=== PATIENT | male | born 1950 | race Caucasian/White ===

== ENCOUNTER 2016-04-28 19:33 | Observation (INO) | payer BC ==
[2016-04-28] MEDS ORDERED: Nitroglycerin TAB 0.4 MG* 0.4 MG TAB SL ONE (20:13)
[2016-04-28] MEDS ORDERED: Lidocaine 2% VISCOUS* 15 ML UDC PO ONE (20:14)
[2016-04-28] MEDS ORDERED: Al Hydrox/Mg Hydrox/Simet LIQ* 30 ML UDC PO ONE (20:14)
[2016-04-28] MEDS: NS 0.9% 1000 ML* 1,000 ML IV SCH (20:34)
--- NOTE | 2016-04-28 20:53 | RAD ---
INDICATION: Chest pain COMPARISON: Chest x-ray August 09, 2012 TECHNIQUE: An AP portable view obtained at 2020 hours is submitted. FINDINGS: Bones/Soft Tissues: There are no acute bony findings. Cardiomediastinal: The cardiomediastinal silhouette is normal. Lungs: There are no infiltrates. Incidental note is made of an azygos fissure. Pleura: There are no pleural effusions. Other: None IMPRESSION: NO ACTIVE DISEASE.
[2016-04-28 20:59] LABS: Hematocrit 46 % (42-52); Hemoglobin 15.4 g/dl (14.0-18.0); Mean Corpuscular HGB Conc 33 g/dl (31-36); Mean Corpuscular Hemoglobin 31 pg (27-31); Mean Corpuscular Volume 93 fL (80-94); Mean Platelet Volume 10 um3 (7.4-10.4); Red Blood Count 4.96 10^6/ul (4.0-5.4); Red Cell Distribution Width 13 % (10.5-15); White Blood Count 9.3 10^3/ul (3.5-10.8)
[2016-04-28 21:16] LABS: ALT 32 U/L (7-52); Alkaline Phosphatase 55 U/L (34-104); BUN/Creatinine Ratio 18.9 (8-20); Blood Urea Nitrogen 21 mg/dL (6-24); C Reactive Protein 1.64 mg/L (< 5.00); CO2 Carbon Dioxide 26 mmol/L (22-32); Calcium 9.1 mg/dL (8.6-10.3); Chloride 103 mmol/L (101-111); Creatine Kinase 90 U/L (10-223); EGFR Non-African American 66.9 (>60); Globulin 2.9 g/dL (2-4); Glucose 116 mg/dL (70-100); Lipase 18 U/L (11.0-82.0); Sodium 136 mmol/L (133-145); Total Protein 6.9 g/dL (6.4-8.9)
[2016-04-28 21:18] LABS: Troponin I 0.01 ng/mL (<0.04)
[2016-04-28] MEDS ORDERED: Iohexol 350* (CONTRAST) 500 ML MDV IV ONE (21:22)
[2016-04-28 21:35] LABS: TSH (Thyroid Stimulating Horm) 2.89 mcIU/mL (0.34-5.60)
--- NOTE | 2016-04-28 21:37 | ED ---
Wayne Hill Michael, scribed for Sanjay So MD on 04/28/16 at 2011 . HPI Chest Pain - HPI Summary HPI Summary: 65 y/o male comes to the ED presenting with constant lower left CP that started at 1600 this afternoon. The pt describes the CP as tightness and pressure, and he states that at the CP's worst it was rated a 6 out of 10. Currently the pt rates the pain at 4 out of 10. The CP does not radiate to the to LUE, and it is aggravated with standing up and taking deep breathes. He also c/o diaphoresis. The pt denies SOB, nausea, and bilateral LE pain. The PMHx is significant for HTN and CAD. - History of Current Complaint Chief Complaint: EDChestPainROMI Time Seen by Provider: 04/28/16 19:53 Hx Obtained From: Patient, Medical Records Onset/Duration: Started Hours Ago, Still Present Time of Onset: 16:00 Timing: Constant Initial Severity: Moderate Current Severity: Mild Pain Intensity: 4 Pain Scale Used: 0-10 Numeric Chest Pain Location: Discrete at: - left lower CP Chest Pain Radiates: No Character: Pressure/Squeezing, Tightness Aggravating Factor(s): Movement - standing up Alleviating Factor(s): Nothing Associated Signs and Symptoms: Positive: Negative - bilateral LE pain, Chest Pain, Diaphoresis. Negative: Shortness of Breath, Nausea - Allergy/Home Medications Allergies/Adverse Reactions: Allergies Allergy/AdvReac Type Severity Reaction Status Date / Time No Known Allergies Allergy Verified 02/17/15 07:38 PMH/Surg Hx/FS Hx/Imm Hx Endocrine/Hematology History: Denies: Hx Anticoagulant Therapy, Hx Diabetes, Hx Sickle Cell Disease, Hx Thyroid Disease Cardiovascular History: Reports: Hx Coronary Artery Disease - CHOLESTEROL CONTROL WITH MEDICATION, Hx Hypertension - WELL CONTROLLED WITH MEDICATION Denies: Hx Pacemaker/ICD, Other Cardiovascular Problems/Disorders Respiratory History: Reports: Hx Sleep Apnea Denies: Hx Asthma, Hx Chronic Obstructive Pulmonary Disease (COPD), Other Respiratory Problems/Disorders GI History: Denies: Other GI Disorders History: Reports: Hx Kidney Stones - CURRENT, Hx Renal Disease Musculoskeletal History: Reports: Hx Arthritis - PSORIATIC ARTHRITIS Sensory History: Reports: Hx Contacts or Glasses - GLASSES Denies: Hx Hearing Aid Opthamlomology History: Reports: Hx Contacts or Glasses - GLASSES Neurological History: Denies: Hx Dementia, Hx Seizures, Other Neuro Impairments/Disorders Psychiatric History: Reports: Hx Anxiety, Hx Depression Denies: Hx Substance Abuse - Surgical History Surgery Procedure, Year, and Place: CYSTO, LITHO 12/15 [facility]. TONSILLECTOMY, AGE 12. MULTIPLE CYSTO, STENT FOR KIDNEY STONES [facility] Hx Anesthesia Reactions: No Infectious Disease History: No Infectious Disease History: Denies: Hx Hepatitis, Hx Human Immunodeficiency Virus (HIV), Traveled Outside the [place] in Last 30 Days - Family History Known Family History: Positive: None Family History: No family malignant hyperthermia and family anesthesia reaction - Social History Occupation: Employed Full-time Lives: With Family Alcohol Use: Daily Alcohol Amount: 1 BEER A DAY Substance Use Type: Reports: None Smoking Status (MU): Never Smoked Tobacco Have You Smoked in the Last Year: No Review of Systems Positive: Skin Diaphoresis. Negative: Fever Positive: Chest Pain Negative: Shortness Of Breath Negative: Nausea All Other Systems Reviewed And Are Negative: Yes Physical Exam Triage Information Reviewed: Yes Vital Signs On Initial Exam: Initial Vitals Temp Pulse Resp BP Pulse Ox 98.9 F 91 16 150/83 98 04/28/16 19:35 04/28/16 19:35 04/28/16 19:35 04/28/16 19:35 04/28/16 19:35 Vital Signs Reviewed: Yes Appearance: Positive: Well-Appearing, No Pain Distress Skin: Positive: Warm, Skin Color Reflects Adequate Perfusion, Dry Head/Face: Positive: Normal Head/Face Inspection Eyes: Positive: EOMI, GREGG ENT: Positive: Normal ENT inspection Neck: Positive: Supple, Nontender Respiratory/Lung Sounds: Positive: Clear to Auscultation, Breath Sounds Present Cardiovascular: Positive: RRR Abdomen Description: Positive: Nontender, Soft Bowel Sounds: Positive: Present Musculoskeletal: Positive: Normal, Strength/ROM Intact Neurological: Positive: Normal, Sensory/Motor Intact, Alert, Oriented to Person Place, Time Psychiatric: Positive: Affect/Mood Appropriate Diagnostics - Vital Signs Vital Signs Temp Pulse Resp BP Pulse Ox 04/28/16 19:35 98.9 F 91 16 150/83 98 - Laboratory Lab Results: Lab Results 04/28/16 04/28/16 04/28/16 Range/Units 20:45 20:45 20:45 WBC 9.3 (3.5-10.8) 10^3/ul RBC 4.96 (4.0-5.4) 10^6/ul Hgb 15.4 (14.0-18.0) g/dl Hct 46 (42-52) % MCV 93 (80-94) fL MCH 31 (27-31) pg MCHC 33 (31-36) g/dl RDW 13 (10.5-15) % Plt Count 221 (150-450) 10^3/ul MPV 10 (7.4-10.4) um3 Neut % (Auto) 65.0 (38-83) % Lymph % (Auto) 20.8 L (25-47) % [place] % (Auto) 11.3 H (1-9) % Eos % (Auto) 1.8 (0-6) % Baso % (Auto) 1.1 (0-2) % Absolute Neuts (auto) 6.1 (1.5-7.7) 10^3/ul Absolute Lymphs (auto) 1.9 (1.0-4.8) 10^3/ul Absolute Monos (auto) 1.1 H (0-0.8) 10^3/ul Absolute Eos (auto) 0.2 (0-0.6) 10^3/ul Absolute Basos (auto) 0.1 (0-0.2) 10^3/ul Absolute Nucleated RBC 0.01 10^3/ul Nucleated RBC % 0.1 INR (Anticoag Therapy) 0.92 (0.89-1.11) APTT 26.7 (26.0-36.3) seconds D-Dimer, Quantitative 396 H (Less Than 230) ng/mL Sodium 136 (133-145) mmol/L Potassium TNP Chloride 103 (101-111) mmol/L Carbon Dioxide 26 (22-32) mmol/L Anion Gap TNP BUN 21 (6-24) mg/dL Creatinine 1.11 (0.67-1.17) mg/dL Est GFR ( Amer) 86.0 (>60) Est GFR (Non-Af Amer) 66.9 (>60) BUN/Creatinine Ratio 18.9 (8-20) Glucose 116 H (70-100) mg/dL Lactic Acid (0.5-2.0) mmol/L Calcium 9.1 (8.6-10.3) mg/dL Magnesium TNP Total Bilirubin 0.50 (0.2-1.0) mg/dL AST TNP ALT 32 (7-52) U/L Alkaline Phosphatase 55 (34-104) U/L Total Creatine Kinase 90 (10-223) U/L CK-MB (CK-2) 2.3 (0.6-6.3) ng/mL Troponin I 0.01 (<0.04) ng/mL C-Reactive Protein 1.64 (< 5.00) mg/L B-Natriuretic Peptide ( - 100) pg/mL Total Protein 6.9 (6.4-8.9) g/dL Albumin 4.0 (3.2-5.2) g/dL Globulin 2.9 (2-4) g/dL Albumin/Globulin Ratio 1.4 (1-3) Lipase 18 (11.0-82.0) U/L TSH 2.89 (0.34-5.60) mcIU/mL 04/28/16 04/28/16 Range/Units 20:45 20:45 WBC (3.5-10.8) 10^3/ul RBC (4.0-5.4) 10^6/ul Hgb (14.0-18.0) g/dl Hct (42-52) % MCV (80-94) fL MCH (27-31) pg MCHC (31-36) g/dl RDW (10.5-15) % Plt Count (150-450) 10^3/ul MPV (7.4-10.4) um3 Neut % (Auto) (38-83) % Lymph % (Auto) (25-47) % [place] % (Auto) (1-9) % Eos % (Auto) (0-6) % Baso % (Auto) (0-2) % Absolute Neuts (auto) (1.5-7.7) 10^3/ul Absolute Lymphs (auto) (1.0-4.8) 10^3/ul Absolute Monos (auto) (0-0.8) 10^3/ul Absolute Eos (auto) (0-0.6) 10^3/ul Absolute Basos (auto) (0-0.2) 10^3/ul Absolute Nucleated RBC 10^3/ul Nucleated RBC % INR (Anticoag Therapy) (0.89-1.11) APTT (26.0-36.3) seconds D-Dimer, Quantitative (Less Than 230) ng/mL Sodium (133-145) mmol/L Potassium Chloride (101-111) mmol/L Carbon Dioxide (22-32) mmol/L Anion Gap BUN (6-24) mg/dL Creatinine (0.67-1.17) mg/dL Est GFR ( Amer) (>60) Est GFR (Non-Af Amer) (>60) BUN/Creatinine Ratio (8-20) Glucose (70-100) mg/dL Lactic Acid 1.7 (0.5-2.0) mmol/L Calcium (8.6-10.3) mg/dL Magnesium Total Bilirubin (0.2-1.0) mg/dL AST ALT (7-52) U/L Alkaline Phosphatase (34-104) U/L Total Creatine Kinase (10-223) U/L CK-MB (CK-2) (0.6-6.3) ng/mL Troponin I (<0.04) ng/mL C-Reactive Protein (< 5.00) mg/L B-Natriuretic Peptide 16 ( - 100) pg/mL Total Protein (6.4-8.9) g/dL Albumin (3.2-5.2) g/dL Globulin (2-4) g/dL Albumin/Globulin Ratio (1-3) Lipase (11.0-82.0) U/L TSH (0.34-5.60) mcIU/mL Result Diagrams: 04/28/16 20:45 04/28/16 20:45 Lab Statement: Any lab studies that have been ordered have been reviewed, and results considered in the medical decision making process. - Radiology CXR Xray Interpretation: No Acute Changes Radiology Interpretation Completed By: Radiologist - EKG EK EKG Rhythm: Sinus Rhythm - 79 ST Segment: Normal Ectopy: None Chest Pain Course/Dx - Course Course Of Treatment: consulted Dr. Kim at 2024-patient will be admitted to [facility] Assessment/Plan: CTA RESULTS PENDING AT SHIFT CHANGE. ADMIT HOSPITALIST STABLE. - Diagnoses Provider Diagnoses: Chest pain Discharge - Discharge Plan Condition: Stable Disposition: ADMITTED TO [facility] Referrals: Osiel Hicks MD [Primary Care Provider] - The documentation as recorded by the scribeWayne Michael accurately reflects the service I personally performed and the decisions made by me, Sanjay So MD.
[2016-04-28 22:48] LABS: Magnesium 2.2 mg/dL (1.9-2.7)
[2016-04-28] MEDS ORDERED: Aspirin TAB* 325 MG PO ONE (23:06)
--- NOTE | 2016-04-29 00:32 | HP ---
HOSPITAL MEDICINE HISTORY AND PHYSICAL: DATE OF ADMISSION: 04/28/16 PRIMARY CARE PHYSICIAN: Dr. Hicks ATTENDING PHYSICIAN: Job Kim MD* (dictation provided by Marbella Rey NP) CHIEF COMPLAINT: Chest pain. HISTORY OF PRESENT ILLNESS: Mr. Polanco is a 65-year-old male with a past medical history of hypertension and hyperlipidemia, who presents to the hospital today with concerns of chest pain. Mr. Polanco states that he was sitting in home watching TV, doing nothing when he suddenly had the onset of chest discomfort to his left chest wall. The pain did not radiate. He had no nausea, had no sweating. He had no vomiting. He had no shortness of breath. The pain was constant. He assumed it would go quickly, but when it did not relieved after a couple of hours, he decided to come to the emergency room for evaluation. In the emergency room, he continues to have some very mild chest pressure along the left chest wall. It is reproducible with palpation. Other than this, Mr. Polanco states he has been doing well. In the emergency room, Mr. Polanco had a troponin that was 0.01 and he had a chest x-ray which showed no acute cardiothoracic process. He had a D-dimer, which was mildly elevated at 396 and therefore went on for a CT of the chest which showed no acute pulmonary embolism or other abnormality. PAST MEDICAL HISTORY: Hypertension, hyperlipidemia, psoriatic arthritis, psoriasis, history of multiple kidney stones. ALLERGIES: No known drug allergies. FAMILY HISTORY: The patient reports his mother related to COPD and dad from non-Hodgkin lymphoma at 84. SOCIAL HISTORY: No reported tobacco or drug use. The patient drinks one beer per day. He states his is the healthcare proxy. REVIEW OF SYSTEMS: A 14-point review of systems was completed with Mr. Polanco and all those not mentioned above were negative. PHYSICAL EXAMINATION GENERAL: Ms. Polanco is sitting in the bed, in no acute distress. He is calm and cooperative with my examination. VITAL SIGNS: Temperature 98.2, heart rate 74, respiratory rate 21, O2 saturation 94% on room air, blood pressure 127/66. HEART: S1, S2. No murmurs, rubs or gallops and regular LUNGS: Clear to auscultation bilaterally with no accessory muscle use and good aeration. NEUROLOGIC: He is alert and oriented x3. He moves all extremities equally. There is no facial asymmetry or focal weakness. Extraocular movements are intact ABDOMEN: Soft, nontender with bowel sounds positive x4. EXTREMITIES: No cyanosis or edema. SKIN: Intact. DIAGNOSTIC STUDIES/LAB DATA: WBC 9.3, hemoglobin 15.4, hematocrit 46, platelet count 321. INR is 0.92, D-dimer 396. Sodium 136, potassium 3.0, chloride 103, serum bicarbonate 26, BUN 21, creatinine 1.11, glucose 116, lactic acid 1.7, magnesium 2.2. Troponin 0.01. Chest x-ray shows no acute process. Chest thorax CTA has been reported to have no pulmonary embolism via angiography technologist and report from Radiology. EKG shows sinus rhythm with no evidence of ischemia. ASSESSMENT: Mr. Polanco is 65-year-old male with a past medical history of hypertension, hyperlipidemia and obesity who presented to the hospital with chest discomfort. In the emergency room, thus far he has had a negative workup. Our plans are for observation in the hospital for the followin. Chest pain. The patient's first troponin was negative. We will repeat troponins x2. He will have telemetry monitoring continuously. He will go on for a nuclear medicine exercise stress test in the morning. 2. Hypertension. Continue the patient's home medications of amlodipine and lisinopril. 3. Depression. Continue bupropion and sertraline. 4. DVT prophylaxis with SCDs. 5. Code status full code. TIME SPENT: Approximately 60 minutes were spent on the admission of this patient, more than half the time spent with her at the bedside reviewing the events leading up to this hospitalization, performing the physical examination, and reviewing the plan of care. MARBELLA REY NP CC: Dr. Hicks * [id number]/[facility] #: [id number] SHYANN
[2016-04-29] MEDS: NS 0.9% 1000 ML* 1,000 ML IV SCH (01:02)
[2016-04-29] MEDS ORDERED: buPROPion TAB* 75 MG PO SCH (09:00)
[2016-04-29] MEDS ORDERED: INDOMETHACIN 75 MG PO SCH (09:00)
[2016-04-29] MEDS ORDERED: Aspirin EC Low Dose* 81 MG TAB.EC PO SCH (09:00)
[2016-04-29] MEDS ORDERED: Folic Acid TAB* 1 MG PO SCH (09:00)
[2016-04-29] MEDS ORDERED: Sertraline* 50 MG TAB PO SCH (09:00)
[2016-04-29] MEDS ORDERED: amLODIPine TAB* 5 MG PO SCH (09:00)
[2016-04-29] MEDS ORDERED: Hydrochlorothiazide TAB* 25 MG PO SCH (09:00)
[2016-04-29] MEDS ORDERED: Lisinopril TAB* 10 MG PO SCH (09:00)
--- NOTE | 2016-04-29 10:01 | RAD ---
Edited for charges. INDICATION: Chest pain. COMPARISON: There are no prior studies available for comparison. Technique: A single day myocardial perfusion stress study was performed. Initially a resting study was performed. The patient was given an intravenous injection of 10.8 mCi of technetium 99m tetrofosmin and and the heart was imaged in multiple projections. The patient returned later in the day and under the direction of Dr. Monsalve, the patient was exercised to a peak heart rate of 141 beats per minute which was 90% of the maximum predicted heart rate. Subsequently the patient was given intravenous injection of 25.6 mCi of technetium 99m tetrofosmin and the heart was imaged in multiple projections. Images were reconstructed in the axial, sagittal and coronal planes and in a 3- D format. FINDINGS: There appears to be normal wall motion and myocardial thickening. The left ventricular ejection fraction was calculated to be 72%. Review of the images demonstrates normal distribution of radiopharmaceutical. IMPRESSION: NO EVIDENCE FOR INFARCT OR ISCHEMIA. ASSESSMENT: Low risk. Based on imaging criteria from ACC/AHA 2002 Guideline Update for the Management of Patients With Chronic Stable Angina Table 23. Noninvasive Risk Stratification. MTDD
[2016-04-29 10:19] VITALS: BP 147/76
[2016-04-29] MEDS ORDERED: Atorvastatin* 10 MG TAB PO SCH (17:00)
--- NOTE | 2016-04-30 02:26 | DS ---
DISCHARGE SUMMARY: DATE OF ADMISSION: DATE OF DISCHARGE: 04/29/16 HISTORY OF PRESENT ILLNESS: This 65-year-old man presenting with chest pain. He was at home relaxing, sitting down. He was under no stress. He had not done any unusual activity. He developed left-sided chest pain, somewhat pleuritic and radiated around to his back a little bit. There was no further radiation. There were no associated symptoms. The pain persisted and in fact was present at the time of discharge. In the emergency room, his D-dimer was noted to be 396. CTA of the chest was done. Verbal report from the radiologist is that this was normal. There was no evidence of pulmonary embolism. The patient was admitted to the telemetry unit. He had three troponins, all of which were normal. EKG showed no significant abnormalities. He underwent a nuclear medicine stress test, which showed no evidence of infarct or ischemia. Ejection fraction was calculated to be 72%. My clinical impression is that the patient has chest wall syndrome. He was a little tender on his chest wall. He had a little spot of psoriasis in the left scapular area. The chest wall pain could be related to psoriatic arthritis to some musculo-skeletal strain or other type of musculoskeletal inflammation. Remote possibility is that he has radicular pain from vertebral column disease. In any event, he did not require any extra medications for this and seemed to be quite comfortable moving around. My expectation is that the pain will gradually subside in the next few days or weeks at most. If it persists, further workup could be done as an outpatient. FINAL DIAGNOSES: 1. Chest wall pain. 2. Psoriatic arthritis. 3. Hypertension. 4. Bilateral renal calculi. DISCHARGE MEDICATIONS: 1. Hydrochlorothiazide 12.5 mg daily. 2. Lisinopril 10 mg daily. 3. Amlodipine 10 mg daily. 4. Methotrexate 5 mg every Friday. 5. Indomethacin 75 mg every evening. 6. Hydrocortisone 2.5% cream p.r.n. 7. Folic acid 1 mg daily. 8. Bupropion 75 mg daily. 9. Simvastatin 20 mg daily. 10. Sertraline 50 mg daily. CC: Dr. Hicks* [id number]/[facility] #: [id number] MTDD
--- NOTE | 2016-04-30 09:18 | RAD ---
INDICATION: Chest pain. Short of breath. Evaluate for pulmonary embolus. COMPARISON: CT abdomen and pelvis April 23, 2012 TECHNIQUE: Axial source images were obtained from the thoracic inlet to the hemidiaphragms following administration of [address] angiographic technique was utilized. Coronal and sagittal reconstructed images were acquired. CHEST FINDINGS: Neck/thyroid: The visualized neck to include the thyroid appear normal. Chest wall: There are no acute abnormalities of the bony thorax or chest wall. There is no supraclavicular, infraclavicular, or axillary lymphadenopathy. Lungs : There are no pulmonary parenchymal masses or infiltrates. The pulmonary interstitium appears normal. There are no endobronchial lesions. Still note is made of an azygos lobe Cardiomediastinal structures: There is no CT evidence of acute pulmonary embolic disease. The heart is normal in size. There is no pericardial effusion. There is no evidence of aortic aneurysm or dissection. There is no mediastinal or hilar adenopathy. The esophagus appears normal. Pleura : There are no pleural-based masses or effusions. Other: There is eventration right hemidiaphragm, unchanged. There is hepatic steatosis. The GE junction appears patulous IMPRESSION: NO CT EVIDENCE OF ACUTE PULMONARY EMBOLIC DISEASE.
== END 2016-04-29 11:38 | disposition home or self-care (01) ==
LOC: ED 19:33 → MEDTELE 23:15
PROVIDERS: ADMIT Hospitalist; ATTEND Internal Medicine
DX: R07.89 Other chest pain (principal); L40.50 Arthropathic psoriasis, unspecified; I10 Essential (primary) hypertension; N20.0 Calculus of kidney; I25.10 Atherosclerotic heart disease of native coronary artery without angina pectoris
CPT/HCPCS: 36415; 71010; 71275; 78452; 80053; 80061; 82550; 82553; 83605; 83690; 83735; 83880; 84443; 84484; 85025; 85379; 85610; 85730; 86140; 93005; 93017; 99284; A9270-GY; A9502; G0378; Q9967

== ENCOUNTER 2016-10-14 09:51 | Day surgery (SDC) | payer BC ==
--- NOTE | 2016-10-10 13:07 | HP ---
CC: Dr. Osiel Hicks; MELY Salomon * ADMITTING HISTORY AND PHYSICAL: DATE OF ADMISSION: 10/14/16 ADMITTING DIAGNOSES: 1. Left ureteral calculi. 2. Bilaterally renal calculi. PLANNED PROCEDURE: Shockwave lithotripsy left ureteral calculi and left stent insertion. SURGEON: Dr. Carrington. HISTORY OF PRESENT ILLNESS: Neeraj Polanco is a 66-year-old gentleman with a history of bilateral renal calculi. He was recently evaluated and was noted to have what appears to be 2 calculi together aggregating 1.2 cm in the proximal left ureter with mild caliectasis. He was given an option of trying conservative management to see if he could pass this but because of the size and the proximal location of the calculi he has opted for and is now being brought in for left stent insertion and lithotripsy. PAST MEDICAL HISTORY: Significant for: 1. Bilateral recurrent renal calculi. 2. Psoriatic arthritis. 3. Hypertension. MEDICATIONS ON ADMISSION: 1. Cytra-K solution 10 mL twice a day. 2. Lisinopril 20 mg daily. 3. Hydrochlorothiazide 25 mg daily. 4. Methotrexate 10 mg weekly. 5. Wellbutrin 150 mg a day. 6. Amlodipine 10 mg a day. 7. Indomethacin. ALLERGIES: No known drug allergies. REVIEW OF SYSTEMS: He denies any chest pain or shortness of breath. There is no history of diabetes mellitus or any other major systemic illness. PHYSICAL EXAMINATION GENERAL: Reveals a pleasant middle-aged, overweight gentleman. VITAL SIGNS: Blood pressure is 142/84; pulse 80 per minute, temperature 97.7, oxygen saturation 97% on room air. LUNGS: Clear bilaterally. CARDIOVASCULAR: Regular rate and rhythm. S1, S2. ABDOMEN: Soft with mild left flank tenderness. IMPRESSION: I reviewed the sonogram and the x-ray in detail with Mr. Polanco and had a detailed discussion of treatment options including continued conservative management, left ureteroscopy with laser lithotripsy, and left stent insertion with shockwave lithotripsy. I discussed the procedure in detail with him and the plan is for left stent insertion and shockwave lithotripsy of left ureteral calculi. [id number]/[facility] #: [id number] MTDD
[~2016-10-14 09:51] MED LIST: Buffered Lidocaine 0.9% SYRIN* 5 ML/SYR SYRINGE INTRADERM ONE; Buffered Lidocaine 0.9% SYRIN* 5 ML/SYR SYRINGE ONE; Famotidine IV* 10 MG/ML 2 ML (20 mg) IV ONE; Famotidine IV* 10 MG/ML 2 ML (20 mg) ONE; cefTRIAXone(*) 2 GM ADDV.VIAL IVPB ONE
[2016-10-14] MEDS ORDERED: Dexamethasone IV* 4 MG/ML 1 ML (4 MG) ONE (11:07)
[2016-10-14] MEDS ORDERED: KETAMINE HCL* 50 MG/ML 10 ML VIAL ONE (11:07)
[2016-10-14] MEDS ORDERED: Ondansetron INJ* 2 MG/ML VIAL ONE (11:07)
[2016-10-14] MEDS ORDERED: Lidocaine 2% PF * 5 ML VIAL ONE (11:07)
[2016-10-14] MEDS ORDERED: Ketorolac INJ* 30 MG/ML 1 ML VIAL ONE (11:07)
[2016-10-14] MEDS ORDERED: Propofol* 10 MG/ML 20 ML BTL IV PUSH ONE ×2 (11:07→12:18)
[2016-10-14] MEDS ORDERED: fentaNYL* 50 MCG/ML 2 ML VIAL (100 MCG VIAL) ONE (11:07)
[2016-10-14] MEDS ORDERED: Midazolam* 1 MG/ML 5 ML VIAL (5 MG) ONE (11:08)
--- NOTE | 2016-10-14 11:20 | RAD ---
INDICATION: Bilateral nephrolithiasis COMPARISON: October 10, 2016 TECHNIQUE: A single view of the abdomen is submitted. FINDINGS: Bones: There are no acute bony findings. Soft tissues: The soft tissues appear normal. The psoas margins are sharp. Bowel gas pattern: Normal Calcifications: There is bilateral nephrolithiasis. There is no significant radiographic change. Other: None IMPRESSION: BILATERAL NEPHROLITHIASIS, UNCHANGED.
[2016-10-14] MEDS ORDERED: oxyCODONE/Acetamin 5/325 MG* TAB PO PRN (11:27)
[2016-10-14] MEDS ORDERED: DiMENhydriNATE IV* 50 MG/ML VIAL IV PUSH PRN (11:27)
[2016-10-14] MEDS ORDERED: fentaNYL* 50 MCG/ML 2 ML VIAL (100 MCG VIAL) IV PRN (11:27)
[2016-10-14] MEDS ORDERED: Ondansetron INJ* 2 MG/ML VIAL IV PRN (11:27)
[2016-10-14] MEDS ORDERED: Iohexol 180 (CONTRAST) 10 ML SDV IV ONE ×2 (11:31→11:34)
[2016-10-14] MEDS ORDERED: Midazolam* 1 MG/ML 2 ML VIAL (2 MG) ONE (11:52)
[2016-10-14] MEDS ORDERED: Furosemide IV* 10 MG/ML 2 ML VIAL (20 MG) ONE (12:07)
[2016-10-14] MEDS ORDERED: Tamsulosin CAP* 0.4 MG ONE (13:31)
[2016-10-14 14:18] VITALS: BP 140/75
--- NOTE | 2016-10-14 15:27 | RAD ---
INDICATION: Left ureteral stent placement. Left-sided urolithiasis. COMPARISON: October 14, 2016 TECHNIQUE: A single view of the abdomen is submitted. FINDINGS: Bones: There are no acute bony findings. Soft tissues: The soft tissues appear normal. The psoas margins are sharp. Bowel gas pattern: Normal Calcifications: There is been fragmentation of the dominant left-sided calcification. There are multiple small calcific fragments at the level of the inferior pole left kidney and proximal ureter. Other: Interval left ureteral stent placement IMPRESSION: INTERVAL LEFT RENAL FRAGMENTATION POST LITHOTRIPSY AND INTERVAL LEFT URETERAL STENT PLACEMENT
--- NOTE | 2016-10-14 22:33 | OP ---
CC: Osiel Hicks MD * DATE OF OPERATION: 10/14/16 - [facility] DATE OF : 54 SURGEON: Ramon Carrington MD. ANESTHESIOLOGIST: Dr. Saucedo. ANESTHESIA: Spinal. PRE-OP DIAGNOSES: 1. Left ureteral calculi. 2. Left hydronephrosis. POST-OP DIAGNOSES: 1. Left ureteral calculi. 2. Left hydronephrosis. SURGICAL PROCEDURE: 1. Shockwave lithotripsy, left ureteral calculi. 2. Cystoscopy, left retrograde and left stent insertion. COMPLICATIONS: None. POSTOPERATIVE CONDITION: Stable. STENT USED: A 6-Japanese stent, left ureter. INDICATIONS: Neeraj Polanco is a 66-year-old gentleman with a history of bilateral renal and ureteral calculi. He was recently evaluated and noted to have two calculi aggregating 1.2 cm in the left proximal ureter. DESCRIPTION OF PROCEDURE: After induction of spinal anesthesia, the patient was placed on the lithotripsy table in supine position. The 2 calculi in the proximal left ureter were localized using fluoroscopy. Shockwave lithotripsy was commenced at a rate of 90 shocks per minute. Good fragmentation was observed during the procedure and a total of 2200 shocks were administered. Next, the patient was placed in dorsal lithotomy position. Cystoscopy was performed. The urethra was normal. There was mild enlargement of the prostate and a mildly trabeculated bladder. Left retrograde pyelogram revealed left hydronephrosis and a 6-Japanese stent was introduced and positioned under fluoroscopy with good proximal and distal positioning obtained. The patient tolerated the procedure satisfactorily and was transferred back to the recovery area in stable condition. [id number]/[facility] #: [id number] MTDD
== END 2016-10-14 14:23 | disposition home or self-care (01) ==
LOC: OR 09:51
PROVIDERS: ATTEND Urology
DX: N13.2 Hydronephrosis with renal and ureteral calculous obstruction (principal); I10 Essential (primary) hypertension; G47.33 Obstructive sleep apnea (adult) (pediatric); L40.50 Arthropathic psoriasis, unspecified
CPT/HCPCS: 74000; C1876; J0696; J1100; J1580; J1885; J1940; J2250; J2405; J2704; J3010

== ENCOUNTER 2016-10-21 06:44 | Day surgery (SDC) | payer BC ==
[~2016-10-21 06:44] MED LIST changes: +Acetaminophen TAB* 325 MG ONE; +Acetaminophen TAB* 325 MG PO ONE; +Ondansetron INJ* 2 MG/ML VIAL IV ONE; +Ondansetron INJ* 2 MG/ML VIAL ONE
[2016-10-21] MEDS ORDERED: Lidocaine 2% PF * 5 ML VIAL ONE (06:59)
[2016-10-21] MEDS ORDERED: Propofol* 10 MG/ML 20 ML BTL IV PUSH ONE (06:59)
[2016-10-21] MEDS ORDERED: Ondansetron INJ* 2 MG/ML VIAL ONE (06:59)
[2016-10-21] MEDS ORDERED: Furosemide IV* 10 MG/ML 2 ML VIAL (20 MG) ONE ×2 (06:59→07:00)
[2016-10-21] MEDS ORDERED: Dexamethasone IV* 4 MG/ML 1 ML (4 MG) ONE (06:59)
[2016-10-21] MEDS ORDERED: Midazolam* 1 MG/ML 5 ML VIAL (5 MG) ONE (07:02)
[2016-10-21] MEDS ORDERED: KETAMINE HCL* 50 MG/ML 10 ML VIAL ONE (07:02)
[2016-10-21] MEDS ORDERED: fentaNYL* 50 MCG/ML 2 ML VIAL (100 MCG VIAL) ONE (07:02)
[2016-10-21] MEDS ORDERED: Phenylephrine IV* 40 MCG/ML 10 ML SYRINGE ONE (07:03)
[2016-10-21] MEDS ORDERED: Lidocaine 2% JELLY* 20 ML (for OR use) ONE (07:59)
[2016-10-21] MEDS ORDERED: fentaNYL* 50 MCG/ML 2 ML VIAL (100 MCG VIAL) IV PRN (08:52)
[2016-10-21] MEDS ORDERED: DiMENhydriNATE IV* 50 MG/ML VIAL IV PUSH PRN (08:52)
[2016-10-21 08:53] VITALS: BP 157/92
--- NOTE | 2016-10-21 15:22 | OP ---
DATE OF OPERATION: 10/21/16 - [facility] DATE OF : 54 SURGEON: Dr. Carrington. ANESTHESIOLOGIST: Dr. Andres. ANESTHESIA: Local plus IV sedation. PRE-OP DIAGNOSIS: Left ureteral calculi. POST-OP DIAGNOSIS: Left ureteral calculi. OPERATIVE PROCEDURE: Cystoscopy and left stent removal. COMPLICATIONS: None. POSTOPERATIVE CONDITION: Stable. INDICATIONS: Neeraj Polanco is a 66-year-old gentleman with a history of recurrent renal and ureteral calculi. He had undergone left stent insertion and lithotripsy for left ureteral calculi. He would like to have this stent removal done with intravenous sedation, and is now being brought in for the same. DESCRIPTION OF PROCEDURE: After induction of intravenous sedation, 2% Xylocaine gel was instilled per urethra. Cystoscopy was performed. The urethra was normal. The prostate was mildly enlarged. The bladder was examined and appeared unremarkable. The stent was seen exiting from the left orifice and was grasped and removed intact without difficulty. The bladder was emptied. The patient tolerated the procedure satisfactorily and was transferred back to the recovery area in stable condition. [id number]/[facility] #: [id number] MTDD
== END 2016-10-21 09:59 | disposition home or self-care (01) ==
LOC: OR 06:44
PROVIDERS: ATTEND Urology
DX: N20.1 Calculus of ureter (principal); L40.50 Arthropathic psoriasis, unspecified; I10 Essential (primary) hypertension; G47.33 Obstructive sleep apnea (adult) (pediatric); F41.8 Other specified anxiety disorders
CPT/HCPCS: A9270-GY; J0696; J1100; J1940; J2250; J2405; J2704; J3010

== ENCOUNTER → 2017-02-21 10:06 | Day surgery (SDC) | payer BC ==
[~2017-02-21 10:06] MED LIST changes: -Acetaminophen TAB* 325 MG ONE; -Acetaminophen TAB* 325 MG PO ONE; -Buffered Lidocaine 0.9% SYRIN* 5 ML/SYR SYRINGE ONE; -Famotidine IV* 10 MG/ML 2 ML (20 mg) ONE; -Ondansetron INJ* 2 MG/ML VIAL IV ONE; -Ondansetron INJ* 2 MG/ML VIAL ONE; -cefTRIAXone(*) 2 GM ADDV.VIAL IVPB ONE
--- NOTE | 2017-02-21 11:21 | HP ---
CC: Dr. Osiel Hicks; MELY Salomon * ADMITTING HISTORY AND PHYSICAL: DATE OF ADMISSION: 02/21/17 ADMITTING DIAGNOSES: 1. Bilateral ureteral calculi. 2. Bilateral renal calculi. PLANNED PROCEDURE: Bilateral ureteroscopy, possible laser, stent insertion. SURGEON: Dr. Carrington. HISTORY OF PRESENT ILLNESS: Neeraj Mabry is a 66-year-old gentleman with a history of recurrent multiple bilateral renal and ureteral calculi. He was recently evaluated for bilateral flank pain and was noted to have approximately a 6- mm calculus in the proximal right ureter and a 5- to 6-mm calculus in the distal left ureter. In addition, he has multiple bilateral renal calculi. PAST MEDICAL HISTORY: Significant for: 1. Recurrent bilateral renal calculi. 2. Hypertension. 3. Psoriatic arthritis. MEDICATIONS: 1. Amlodipine 10 mg daily. 2. Lisinopril 20 mg daily. 3. Cytra-K solution 10 mL twice a day. 4. Hydrochlorothiazide 25 mg a day. 5. Methotrexate 10 mg daily. 6. Wellbutrin 150 mg daily. 7. Indomethacin p.r.n. ALLERGIES: No known drug allergies. REVIEW OF SYSTEMS: There is no history of diabetes and he denies any chest pain , shortness of breath, or any GI symptoms. PHYSICAL EXAMINATION GENERAL: Reveals a significantly uncomfortable-appearing middle-aged gentleman. VITAL SIGNS: Blood pressure is 158/100, pulse 114 per minute and regular, temperature 98, oxygen saturation 97% on room air. LUNGS: Clear bilaterally. CARDIOVASCULAR: Regular rate and rhythm. S1, S2. ABDOMEN: Soft with bilateral flank tenderness. IMPRESSION: A 66-year-old gentleman with bilateral ureteral and bilateral renal calculi. PLAN: Planned procedure is bilateral ureteroscopy, possible laser, and stent insertion. [id number]/[facility] #: [id number] [facility]
== END | disposition home or self-care (01) ==
LOC: OR 10:06
PROVIDERS: ATTEND Urology
DX: Z53.9 Procedure and treatment not carried out, unspecified reason (principal)

== ENCOUNTER 2017-03-24 09:16 | Day surgery (SDC) | payer BC ==
--- NOTE | 2017-03-21 15:30 | HP ---
CC: Dr. Hicks; Ayush Ambrose NP * DATE OF ADMISSION: 03/24/2017. AGE: 66-year-old male. ADMITTING DIAGNOSES: 1. Right hydronephrosis. 2. Right ureteral calculus. 3. Bilateral renal calculi. PLANNED PROCEDURE: Right ureteroscopy, possible laser and stent insertion (to be followed in the near future by lithotripsy). SURGEON: Dr. Ramon Carrington. HISTORY OF PRESENT ILLNESS: Neeraj Polanco is a 66-year-old gentleman with a history of renal calculi. He had been evaluated about a month ago and at that time had been noted to have bilateral ureteral calculi. He subsequently passed the calculus in the left ureter, but continued to have episodic right-sided discomfort and follow-up ultrasound revealed persistent right hydronephrosis with an 8 mm calculus in the proximal right ureter. In addition, he has multiple bilateral renal calculi. The plan now is for right ureteroscopy, possible laser and stent insertion, to be followed in the near future by lithotripsy of the renal calculi. PAST MEDICAL HISTORY: Significant for: 1. Hypertension. 2. Psoriatic arthritis. 3. Recurrent multiple bilateral renal calculi. MEDICATIONS ON ADMISSION: 1. Lisinopril 20 mg a day. 2. Cytra-K solution 10 mL b.i.d. 3. Amlodipine 10 mg daily. 4. Methotrexate 10 mg daily. 5. Hydrochlorothiazide 25 mg daily. 6. Wellbutrin 150 mg daily. 7. Indomethacin prn. ALLERGIES: No known drug allergies. REVIEW OF SYSTEMS: He denies any chest pain or shortness of breath. There is no history of diabetes mellitus or any other major systemic illness. PHYSICAL EXAMINATION GENERAL: Pleasant, healthy-appearing, overweight, middle-aged gentleman. VITAL SIGNS: Blood pressure is 132/80, pulse 70 per minute and regular, oxygen saturation 97 percent on room air, temperature 98.2. CARDIOVASCULAR: Regular rate and rhythm, S1, S2. LUNGS: Clear bilaterally. ABDOMEN: Soft with mild right flank tenderness. IMPRESSION: [place]-pgib-vhvm-old gentleman with a partially obstructing calculus in the right ureter which has been there for over a month and additional bilateral renal calculi. PLAN: Planned procedure is right ureteroscopy, possible laser and stent insertion (to be followed in the near future by lithotripsy). [id number]/[facility] #: [id number] SHYANN
[~2017-03-24 09:16] MED LIST changes: +Dexamethasone IV* 4 MG/ML 1 ML (4 MG) IV SLOW PU ONE
[2017-03-24] MEDS ORDERED: Dexamethasone IV* 4 MG/ML 1 ML (4 MG) ONE (09:30)
[2017-03-24] MEDS ORDERED: Famotidine IV* 10 MG/ML 2 ML (20 mg) ONE (09:30)
[2017-03-24] MEDS ORDERED: fentaNYL* 50 MCG/ML 2 ML VIAL (100 MCG VIAL) ONE (10:19)
[2017-03-24] MEDS ORDERED: Propofol* 10 MG/ML 20 ML BTL IV PUSH ONE (10:19)
[2017-03-24] MEDS ORDERED: Midazolam* 1 MG/ML 10 ML VIAL (10 MG) ONE (10:19)
[2017-03-24] MEDS ORDERED: Chloroprocaine 2%* 20 ML VIAL ONE (10:19)
[2017-03-24] MEDS ORDERED: Iohexol 180 (CONTRAST) 10 ML SDV IV ONE (10:51)
[2017-03-24] MEDS ORDERED: Gentamicin ADULT (*) 160 MG in NS 0.9% 100 ML* 100 ML IVPB ONE (11:00)
[2017-03-24] MEDS ORDERED: Naloxone* 0.4 MG/ML 1 ML VIAL IV PRN (11:05)
[2017-03-24] MEDS ORDERED: fentaNYL* 50 MCG/ML 2 ML VIAL (100 MCG VIAL) IV PRN (11:05)
[2017-03-24] MEDS ORDERED: Ondansetron INJ* 2 MG/ML VIAL IV PRN (11:05)
[2017-03-24] MEDS ORDERED: DiMENhydriNATE IV* 50 MG/ML VIAL IV PUSH PRN (11:05)
[2017-03-24] MEDS ORDERED: oxyCODONE/Acetamin 5/325 MG* TAB PO PRN (11:05)
[2017-03-24 13:44] VITALS: BP 124/68
--- NOTE | 2017-03-24 14:29 | RAD ---
INDICATION: Postop right stent placement. COMPARISON: Comparison is made with a prior KUB series from March 21, 2017 and a prior retrograde pyelogram from March 24, 2017. TECHNIQUE: Frontal supine films of the abdomen were obtained. FINDINGS: The small bowel and colon appear nondistended. The patient is status post placement of a right ureteral stent. The catheter demonstrates normal course. There appear to be bilateral renal calculi. There is also a faint calcification adjacent to the proximal portion of the stent catheter suspicious for ureteral calculus. IMPRESSION: STATUS POST RIGHT URETERAL STENT PLACEMENT.
--- NOTE | 2017-03-25 09:20 | RAD ---
INDICATION: Right renal calculus with laser lithotripsy COMPARISON: KUB March 21, 2017 FINDINGS: 7 seconds of fluoroscopy were provided for the urology department. Fluoroscopic spot imaging of the abdomen were obtained for operative control and show placement of a right ureteral stent in expected position . CPT II Codes: 6045F (fluoro time doc)
--- NOTE | 2017-03-25 13:59 | OP ---
CC: Dr. Osiel Hicks; Ayush Ambrose NP * DATE OF OPERATION: 03/24/17 - [facility] DATE OF : 54 SURGEON: Ramon Carrington MD. ANESTHESIOLOGIST: Dr. Doll. ANESTHESIA: Spinal. PRE-OP DIAGNOSES: 1. Right hydronephrosis. 2. Right ureteral calculus. 3. Right renal calculi. POST-OP DIAGNOSES: 1. Right hydronephrosis. 2. Right ureteral calculus. 3. Right renal calculi. OPERATIVE PROCEDURE: 1. Cystoscopy, right retrograde pyelogram, right ureteroscopy, laser lithotripsy of right ureteral calculus. 2. Right pyeloscopy and laser lithotripsy of right renal calculus and right stent insertion. COMPLICATIONS: None. STENT USED: A 6-Micronesian stent to right ureter. INDICATIONS: Neeraj Polanco is a 66-year-old gentleman with history of recurrent renal calculi, who was recently evaluated and noted to have renal and ureteral calculi. OPERATIVE FINDINGS: 1. Calculus right mid to proximal ureter. 2. Right renal calculus. 3. Right hydronephrosis. DESCRIPTION OF PROCEDURE: After induction of spinal anesthesia, the patient was placed in the dorsal lithotomy position. Sequential compression devices were in place and functioning. Initial cystoscopy revealed a normal appearing urethra, a mildly enlarged prostate. The bladder was examined and appeared unremarkable. The guidewire was introduced into the right ureter. Retrograde pyelogram revealed right hydronephrosis. A 6-Micronesian semi-rigid uretero-scope was introduced and advanced under direct vision. Near the junction of the mid to distal right ureter, a 7 to 8 mm calculus was noted to be impacted. There was some mild surrounding edema. Using a 550 micron holmium laser, this was successfully fragmented into multiple fragments and all of the sizeable fragments were retrieved. Next, the uretero-scope was advanced into the renal pelvis and pyeloscopy was performed. The ureteroscope was advanced into an upper to mid pole calyx and a calculus was noted to be adherent to the urothelium. This was carefully engaged and removed using the basket and then broken up with laser fiber into multiple tiny fragments. A 6- Micronesian stent was introduced and positioned under fluoroscopy with good proximal and distal positioning obtained. The bladder was emptied. The patient tolerated the procedure satisfactorily and was transferred back to the recovery area in stable condition. [id number]/[facility] #: [id number] MTDD
== END 2017-03-24 14:11 | disposition home or self-care (01) ==
LOC: OR 09:16
PROVIDERS: ATTEND Urology
DX: N13.2 Hydronephrosis with renal and ureteral calculous obstruction (principal); I10 Essential (primary) hypertension; L40.50 Arthropathic psoriasis, unspecified; G47.33 Obstructive sleep apnea (adult) (pediatric); F41.8 Other specified anxiety disorders
CPT/HCPCS: 74018; 74420; 82365; 88300; C1876; J1100; J1580; J2250; J2400; J2704; J3010

== ENCOUNTER 2017-04-02 09:17 | Day surgery (SDC) | payer BC ==
[~2017-04-02 09:17] MED LIST changes: -Dexamethasone IV* 4 MG/ML 1 ML (4 MG) IV SLOW PU ONE
[2017-04-02] MEDS ORDERED: Famotidine IV* 10 MG/ML 2 ML (20 mg) ONE (09:49)
[2017-04-02] MEDS ORDERED: cefTRIAXone(*) 2 GM ADDV.VIAL IVPB ONE (09:50)
[2017-04-02] MEDS ORDERED: Dexamethasone IV* 4 MG/ML 1 ML (4 MG) ONE (09:50)
[2017-04-02] MEDS ORDERED: oxyCODONE/Acetamin 5/325 MG* TAB PO PRN (10:05)
[2017-04-02] MEDS ORDERED: HYDROmorphone INJ* 1 MG/ML CARPUJECT SYRINGE IV PRN (10:05)
[2017-04-02] MEDS ORDERED: Ondansetron INJ* 2 MG/ML VIAL IV PRN (10:05)
[2017-04-02] MEDS ORDERED: DiMENhydriNATE IV* 50 MG/ML VIAL IV PUSH PRN (10:05)
[2017-04-02] MEDS ORDERED: fentaNYL* 50 MCG/ML 2 ML VIAL (100 MCG VIAL) IV PRN (10:05)
[2017-04-02] MEDS ORDERED: Naloxone* 0.4 MG/ML 1 ML VIAL IV PRN (10:05)
[2017-04-02] MEDS: Dexamethasone IV* 4 MG/ML 1 ML (4 MG) IV SLOW PU ONE (10:09)
--- NOTE | 2017-04-02 10:15 | RAD ---
HISTORY: Shock wave lithotripsy COMPARISONS: March 24, 2017 VIEWS: Frontal views of the abdomen. FINDINGS: BOWEL: There is a nonspecific bowel gas pattern, with nondilated small bowel gas noted. CALCULI: Again noted are calculi overlying the renal parenchymal shadow as bilaterally, the largest on the right measuring up to 0.7 cm in size. This is similar to the previous examination. A right ureteral stent is noted. BONES AND SOFT TISSUES: There is a scoliotic curvature of the spine. Degenerative changes are noted of the spine OTHER FINDINGS: None . IMPRESSION: 1. BILATERALLY NEPHROLITHIASIS. 2. RIGHT URETERAL STENT.
[2017-04-02] MEDS ORDERED: fentaNYL* 50 MCG/ML 2 ML VIAL (100 MCG VIAL) ONE (10:17)
[2017-04-02] MEDS ORDERED: Midazolam* 1 MG/ML 10 ML VIAL (10 MG) ONE (10:17)
[2017-04-02] MEDS ORDERED: Ondansetron INJ* 2 MG/ML VIAL ONE (10:49)
[2017-04-02] MEDS ORDERED: Chloroprocaine 2%* 20 ML VIAL ONE (10:49)
[2017-04-02] MEDS ORDERED: Furosemide IV* 10 MG/ML 2 ML VIAL (20 MG) ONE (11:07)
[2017-04-02] MEDS ORDERED: Iohexol 180 (CONTRAST) 10 ML SDV IV ONE (11:35)
[2017-04-02 12:40] VITALS: BP 146/82
--- NOTE | 2017-04-03 03:12 | OP ---
DATE OF OPERATION: 04/02/17 - [facility] DATE OF : 54 SURGEON: Dr. Carrington. ANESTHESIA: Spinal. ANESTHESIOLOGIST: Dr. Doll. PRE-OP DIAGNOSES: 1. Right renal calculus. 2. History of right hydronephrosis. POST-OP DIAGNOSES: 1. Right renal calculus. 2. History of right hydronephrosis. OPERATIVE PROCEDURES: 1. Shock wave lithotripsy of right renal calculus. 2. Cystoscopy and right stent removal. COMPLICATIONS: None. POSTOPERATIVE CONDITION: Stable. INDICATIONS: Neeraj Polanco is a 66-year-old gentleman who had undergone right ureteroscopy and laser lithotripsy for obstructing right ureteral calculus. At that time, he was noted to have an additional calculus in the right kidney and is now being brought in for treatment of the same along with stent removal. DESCRIPTION OF PROCEDURE: After induction of spinal anesthesia, the patient was placed on lithotripsy table in supine position. The calculus in the lower pole of the right kidney was identified using fluoroscopy and shock wave lithotripsy was commenced at a rate of 90 shocks per minute. After the initial 300 shocks, there was a pause in the lithotripsy for several minutes in an effort to minimize any potential trauma to the kidney. Lithotripsy was then resumed and a total of 1500 shocks were administered. Next, the patient was placed in dorsal lithotomy position. Cystoscopy was performed. The stent was seen exiting from the right orifice and was removed intact without difficulty. The patient tolerated the procedure satisfactorily and was transferred back to the recovery area in stable condition. [id number]/[facility] #: [id number] [facility]
== END 2017-04-02 13:23 | disposition home or self-care (01) ==
LOC: OR 09:17
PROVIDERS: ATTEND Urology
DX: N13.2 Hydronephrosis with renal and ureteral calculous obstruction (principal); I10 Essential (primary) hypertension; G47.33 Obstructive sleep apnea (adult) (pediatric); L40.50 Arthropathic psoriasis, unspecified; F32.9 Major depressive disorder, single episode, unspecified
CPT/HCPCS: 74018; J0696; J1100; J1940; J2250; J2400; J2405; J3010

== ENCOUNTER → 2018-05-25 07:05 | Day surgery (SDC) | payer MEDICARE ==
--- NOTE | 2018-05-21 17:37 | HP ---
CC: Dr. Osiel Hicks; Ayush Ambrose NP * ADMITTING HISTORY AND PHYSICAL: DATE OF ADMISSION: 05/25/18 ADMITTING DIAGNOSES: 1. Right hydronephrosis. 2. Calculus, right ureter. 3. Bilateral renal calculi. PLANNED PROCEDURE: Right ureteroscopy, possible laser, and stent insertion ( possibly to be followed by shockwave lithotripsy). SURGEON: Dr. Carrington. HISTORY OF PRESENT ILLNESS: Neeraj Polanco is a 67-year-old gentleman with a history of recurrent multiple bilateral renal and ureteral calculi. He had recently been evaluated about 3 weeks ago and was noted to have moderate right hydronephrosis with proximal right hydroureter. He has been managed conservatively, but continues to have persistent right hydronephrosis with a possible calculus in the area of the mid right ureter in addition to bilateral renal calculi. He is now being brought in for right ureteroscopy for treatment of the calculus in the right ureter. PAST MEDICAL HISTORY: Significant for: 1. Recurrent bilateral renal calculi. 2. 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 3. Psoriatic arthritis. 4. Hypertension. MEDICATIONS ON ADMISSION: 1. Amlodipine 10 mg daily. 2. Methotrexate 10 mg daily. 3. Hydrochlorothiazide 25 mg daily. 4. Lisinopril 20 mg daily. 5. Cytra-K solution 10 mL twice a day. 6. Wellbutrin 150 mg daily. 7. Indomethacin p.r.n. 8. Multiple eye drops currently being prescribed. ALLERGIES AND INTOLERANCES: No known drug allergies. REVIEW OF SYSTEMS: He is otherwise in excellent health. There is no history of diabetes mellitus or any other major systemic illness. PHYSICAL EXAMINATION GENERAL: Reveals a pleasant middle-aged gentleman. VITAL SIGNS: Blood pressure is 130/80, pulse 88 per minute, oxygen saturation 98% on room air. LUNGS: Clear bilaterally. CARDIOVASCULAR: Regular rate and rhythm. S1, S2. ABDOMEN: Soft with mild right flank tenderness. IMPRESSION: A 67-year-old gentleman with persistent right hydronephrosis for the last several weeks secondary to a calculus in the right mid ureter with additional bilateral renal calculi. PLAN/RECOMMENDATIONS: Planned procedure is right ureteroscopy, possible laser, and stent insertion (possibly to be followed by in the future by lithotripsy if indicated). [id number]/[facility] #: [id number] [facility] [place]
[~2018-05-25 07:05] MED LIST changes: -Buffered Lidocaine 0.9% SYRIN* 5 ML/SYR SYRINGE INTRADERM ONE; +Buffered Lidocaine 1% SYRIN* 1 ML/SYRINGE INTRADERM ONE; +Dexamethasone IV* 4 MG/ML 1 ML (4 MG) IV SLOW PU ONE; +Dexamethasone IV* 4 MG/ML 1 ML (4 MG) ONE; +DiMENhydriNATE IV* 50 MG/ML VIAL IV PUSH PRN; +Famotidine IV* 10 MG/ML 2 ML (20 mg) ONE; +Iohexol 180 (CONTRAST) 10 ML SDV IV ONE; +Lactated Ringers 1000 ML Bag* 1,000 ML IV SCH; +Midazolam* 1 MG/ML 5 ML VIAL (5 MG) ONE; +Naloxone* 0.4 MG/ML 1 ML VIAL IV PRN; +Ondansetron INJ* 2 MG/ML VIAL IV PRN; +Ondansetron INJ* 2 MG/ML VIAL ONE; +Phenylephrine 10 MG/ML VIAL* 1 ML VIAL ONE; +Propofol* 10 MG/ML 20 ML BTL ONE; +cefTRIAXone(*) 2 GM ADDV.VIAL IVPB ONE; +fentaNYL* 50 MCG/ML 2 ML VIAL (100 MCG VIAL) IV PRN; +fentaNYL* 50 MCG/ML 2 ML VIAL (100 MCG VIAL) ONE
[2018-05-25 10:48] VITALS: BP 152/91
--- NOTE | 2018-05-25 13:03 | OP ---
CC: Dr. Hicks; Ramon Carrington MD OPERATIVE SUMMARY: DATE OF OPERATION: 05/25/18 DATE OF : 54 SURGEON: Ramon Carrington MD ANESTHESIOLOGIST: Dr. Hernandez (failed attempt at spinal anesthesia followed by general anesthesia). ANESTHESIA: General. PRE-OP DIAGNOSES: 1. Right hydronephrosis. 2. Calculus, right mid ureter. 3. Bilateral renal calculi. OPERATIVE PROCEDURE: Cystoscopy, right retrograde pyelogram, right ureteroscopy, fragmentation and r emoval of right ureteral calculus, right pyeloscopy, and right stent insertion. POSTOPERATIVE CONDITION: Stable. STENT USED: 6-Ethiopian stent, right ureter. OPERATIVE FINDINGS: Approximately 6 mm calculus impacted in mid right ureter with right hydronephros is. INDICATIONS: Neeraj Polanco is a 67-year-old gentleman with recurrent bilateral renal calculi, who has recently been noted to have persistent right hydronephrosis. DESCRIPTION OF PROCEDURE: After induction of general anesthesia, external genitalia were prepped and draped in the usual sterile fashion. Sequential compression devices were in place and functioning. Initial cystoscopy revealed a normal-appearing urethra, mildly enlarged prostate. The bladder was e xamined and appeared unremarkable. A guidewire was introduced into the right ureter. Retrograde pyel ogram revealed right hydronephrosis and proximal hydroureter. A 6- Ethiopian semi-rigid ureteroscope wa s introduced and advanced into the right ureter under direct vision. In the mid right ureter, an dillon roximately 6-mm calculus was noted to be impacted with surrounding edema and inflammation. This was carefully disengaged from the site of infection. The stone was fairly friable. It was engaged with a 3-prong grasper and broken into 2 fragments. The larger fragment was removed. The smaller fragmen t migrated into the renal pelvis and the ureteroscope was carefully advanced under direct vision into the proximal ureter and then into the renal pelvis. Pyeloscopy was performed. I could see the frag ment in the renal pelvis and this was grabbed. This was also engaged using the 3-prong grasper and r etrieved and sent for analysis. A 6-Ethiopian stent was introduced and positioned under fluoroscopy wit h good proximal and distal positioning obtained. The patient has additional renal calculi, which may require lithotripsy at a later date and may be that could be combined with his stent removal in 2 we eks. The patient tolerated the procedure satisfactorily and was transferred back to the recovery area in s table condition. [id number]/[facility] #: [id number]
== END | disposition home or self-care (01) ==
LOC: OR 07:05
PROVIDERS: ATTEND Urology
DX: N13.2 Hydronephrosis with renal and ureteral calculous obstruction (principal); I10 Essential (primary) hypertension; L40.50 Arthropathic psoriasis, unspecified; G47.33 Obstructive sleep apnea (adult) (pediatric); E78.5 Hyperlipidemia, unspecified; Z68.33 Body mass index [BMI] 33.0-33.9, adult; F41.8 Other specified anxiety disorders
CPT/HCPCS: 74420; 82365; 88300; C1876; J0696; J1100; J2250; J2405; J2704; J3010

== ENCOUNTER → 2018-06-22 08:49 | Day surgery (SDC) | payer MEDICARE ==
[~2018-06-22 08:49] MED LIST changes: -Dexamethasone IV* 4 MG/ML 1 ML (4 MG) IV SLOW PU ONE; -DiMENhydriNATE IV* 50 MG/ML VIAL IV PUSH PRN; +Furosemide IV* 10 MG/ML 2 ML VIAL (20 MG) ONE; -Iohexol 180 (CONTRAST) 10 ML SDV IV ONE; +Lidocaine 2% PF * 5 ML VIAL ONE; -Phenylephrine 10 MG/ML VIAL* 1 ML VIAL ONE; +oxyCODONE/Acetamin 5/325 MG* TAB PO PRN
[2018-06-22 12:51] VITALS: BP 114/60
--- NOTE | 2018-06-22 22:07 | OP ---
CC: Dr. Osiel Hicks * DATE OF OPERATION: 06/22/18 - [facility] DATE OF : 54 SURGEON: Ramon Carrington MD ANESTHESIOLOGIST: Dr. Saucedo. ANESTHESIA: General. PRE-OP DIAGNOSIS: Right renal calculus. POST-OP DIAGNOSIS: Right renal calculus. OPERATIVE PROCEDURES: 1. Shockwave lithotripsy, right renal calculus. 2. Cystoscopy and right stent removal. COMPLICATIONS: None. POSTOPERATIVE CONDITION: Stable. INDICATIONS: Neeraj Polanco is a 67-year-old gentleman with a history of recurrent bilateral renal and ureteral calculi. He had undergone right ureteroscopy and laser lithotripsy and right stent insertion. At that time, he was noted to have an additional calculus in the right kidney and is now being brought in for management of the same. DESCRIPTION OF PROCEDURE: After induction of general anesthesia, the patient was placed on the lithotripsy table in supine position. The calculus in the lower pole of the right kidney was identified using fluoroscopy. It measured approximately 5 to 6 mm. Shockwave lithotripsy was commenced at a rate of 60 shocks per minute. After the initial 300 shocks, there was a brief pause in lithotripsy for several minutes in an effort to minimize any potential trauma to the kidney. Lithotripsy was then resumed and a total of 1000 shocks were delivered. Next, the patient was placed in dorsal lithotomy position and cystoscopy was performed. The stent was seen with the distal coil in the bladder and was removed intact without difficulty. The bladder was emptied. The patient tolerated the procedure satisfactorily and was transferred back to the recovery area in stable condition. [id number]/[facility] #: [id number] MTDD
== END | disposition home or self-care (01) ==
LOC: OR 08:49
PROVIDERS: ATTEND Urology
DX: N20.0 Calculus of kidney (principal); N20.1 Calculus of ureter; N13.30 Unspecified hydronephrosis; L40.50 Arthropathic psoriasis, unspecified
CPT/HCPCS: 74018; J0696; J1100; J1940; J2250; J2405; J2704; J3010

== ENCOUNTER 2019-02-16 07:38 | Day surgery (SDC) | payer MEDICARE ==
[~2019-02-16 07:38] MED LIST changes: +Dexamethasone IV* 4 MG/ML 1 ML (4 MG) IV SLOW PU ONE; -Dexamethasone IV* 4 MG/ML 1 ML (4 MG) ONE; -Famotidine IV* 10 MG/ML 2 ML (20 mg) ONE; -Furosemide IV* 10 MG/ML 2 ML VIAL (20 MG) ONE; -Lidocaine 2% PF * 5 ML VIAL ONE; -Midazolam* 1 MG/ML 5 ML VIAL (5 MG) ONE; -Naloxone* 0.4 MG/ML 1 ML VIAL IV PRN; -Ondansetron INJ* 2 MG/ML VIAL IV PRN; -Ondansetron INJ* 2 MG/ML VIAL ONE; -Propofol* 10 MG/ML 20 ML BTL ONE; -cefTRIAXone(*) 2 GM ADDV.VIAL IVPB ONE; -fentaNYL* 50 MCG/ML 2 ML VIAL (100 MCG VIAL) IV PRN; -fentaNYL* 50 MCG/ML 2 ML VIAL (100 MCG VIAL) ONE; -oxyCODONE/Acetamin 5/325 MG* TAB PO PRN
[2019-02-16] MEDS ORDERED: Dexamethasone IV* 4 MG/ML 1 ML (4 MG) ONE (08:09)
[2019-02-16] MEDS ORDERED: Famotidine IV* 10 MG/ML 2 ML (20 mg) ONE (08:10)
[2019-02-16] MEDS ORDERED: Buffered Lidocaine 1% SYRIN* 1 ML/SYRINGE INTRADERM ONE (08:10)
[2019-02-16] MEDS ORDERED: ceFAZolin 2 GM in NS PREMIX(*) 2 GM/100 ML BAG IVPB ONE (08:10)
[2019-02-16] MEDS ORDERED: Lidocaine 1% w EPI 1:100,000* MDV 20 ML VIAL ONE (09:52)
[2019-02-16] MEDS ORDERED: BSS OPTH.SOL* BTL ONE (09:52)
[2019-02-16] MEDS ORDERED: Artificial Tear OPHTH.OINT* 3.5 GM ONE (09:52)
[2019-02-16] MEDS ORDERED: fentaNYL* 50 MCG/ML 2 ML VIAL (100 MCG VIAL) ONE (09:53)
[2019-02-16] MEDS ORDERED: Midazolam* 1 MG/ML 5 ML VIAL (5 MG) ONE (09:53)
[2019-02-16] MEDS ORDERED: Acetaminophen TAB* 325 MG PO PRN (09:56)
[2019-02-16] MEDS ORDERED: Ondansetron INJ* 2 MG/ML VIAL IV PRN (09:56)
[2019-02-16] MEDS ORDERED: Naloxone* 0.4 MG/ML 1 ML VIAL IV PRN (09:56)
[2019-02-16] MEDS ORDERED: oxyCODONE/Acetamin 5/325 MG* TAB PO PRN (09:56)
[2019-02-16] MEDS ORDERED: fentaNYL* 50 MCG/ML 2 ML VIAL (100 MCG VIAL) IV PRN (09:56)
[2019-02-16] MEDS ORDERED: HYDROcodone/ACETAMIN 5-325 MG* 1 TAB PO PRN (09:56)
[2019-02-16] MEDS ORDERED: Lidocaine 2% PF * 5 ML VIAL ONE (10:09)
[2019-02-16] MEDS ORDERED: Propofol* 10 MG/ML 20 ML BTL ONE (10:09)
[2019-02-16 13:03] VITALS: BP 121/63
== END 2019-02-16 13:20 | disposition home or self-care (01) ==
LOC: OR 07:38
PROVIDERS: ATTEND Plastic Surgery
DX: C44.329 Squamous cell carcinoma of skin of other parts of face (principal); I10 Essential (primary) hypertension; E78.5 Hyperlipidemia, unspecified; F41.8 Other specified anxiety disorders; G47.33 Obstructive sleep apnea (adult) (pediatric); L40.50 Arthropathic psoriasis, unspecified; Z85.828 Personal history of other malignant neoplasm of skin
CPT/HCPCS: 88305; 88331; 88332; A9270-GY; J0690; J1100; J2250; J2704; J3010

== ENCOUNTER 2021-05-30 23:22 | Observation (INO) ==
[2021-05-30] MEDS ORDERED: Lactated Ringers 1000 ml BAG 1,000 ML IV ONE (23:27)
[2021-05-30 23:52] LABS: ABS Eosinophils 0.2 10^3/ul (0-0.6); ABS Lymphocytes 1.4 10^3/ul (1.0-4.8); ABS Neutrophils 7.1 10^3/ul (1.5-7.7); Eosinophil % 2.2 %; Hematocrit 45 % (42-52); Hemoglobin 15.4 g/dL (14.0-18.0); Lymphocyte % 14.5 %; Mean Corpuscular HGB Conc 34 g/dL (31-36); Mean Corpuscular Hemoglobin 33 pg (27-31); Mean Corpuscular Volume 97 fL (80-94); Mean Platelet Volume 8.7 fL (7.4-10.4); Nucleated Red Blood Cells % 0.1; Platelet Count 216 10^3/uL (150-450); Red Blood Count 4.68 10^6 /uL (4.18-5.48); Red Cell Distribution Width 14 % (10-15); White Blood Count 9.8 10^3/uL (3.5-10.8)
[2021-05-31 00:12] LABS: CO2 Carbon Dioxide 24 mmol/L (22-32); Calcium 9.4 mg/dL (8.6-10.3); Chloride 103 mmol/L (101-111); Sodium 137 mmol/L (135-145)
[2021-05-31 00:15] LABS: Anion Gap 10 mmol/L (2-11)
[2021-05-31 00:18] LABS: Blood Urea Nitrogen 25 mg/dL (6-24); Glucose 113 mg/dL (70-100); eGFR CKD-EPI 70.1 (>60)
[2021-05-31] MEDS ORDERED: fentaNYL 100 mcg/2 ml 50 MCG/ML VIAL IV SLOW PU ONE (02:04)
[2021-05-31] MEDS ORDERED: Lactated Ringers 1000 ml BAG 1,000 ML IV ONE (04:57)
[2021-05-31] MEDS ORDERED: Morphine 4 MG/ML VIAL (1 ml) IV ONE (04:57)
[2021-05-31] MEDS ORDERED: Ondansetron 4 mg VIAL 2 MG/ML 2 ml VIAL IV ONE (04:57)
[2021-05-31 05:12] LABS: Urine Appearance Cloudy; Urine Bilirubin Negative (Negative); Urine Blood Negative (Negative); Urine Color Yellow; Urine Glucose Negative (Negative); Urine Ketones 1+ (Negative); Urine Nitrite Negative (Negative); Urine Protein Negative (Negative); Urine Specific Gravity 1.015 (1.002-1.030); Urine Urobilinogen Negative (Negative)
[2021-05-31] MEDS ORDERED: HYDROmorphone 1 MG/1 ML SYRINGE IV SLOW PU ONE (07:52)
[2021-05-31] MEDS ORDERED: Ondansetron 4 mg VIAL 2 MG/ML 2 ml VIAL IV PRN ×2 (07:56→16:59)
[2021-05-31] MEDS ORDERED: HYDROmorphone 0.5 MG/0.5 ML SYRINGE IV PRN (07:56)
[2021-05-31] MEDS ORDERED: NS 0.9% 1000 ml BAG 1,000 ML IV SCH (08:00)
[2021-05-31] MEDS ORDERED: PREDNISOLONE ACETATE 1% RIGHT EYE SCH ×2 (09:00→15:00)
[2021-05-31] MEDS ORDERED: Timolol 0.5% OPTH.SOL BTL RIGHT EYE SCH (09:00)
[2021-05-31] MEDS ORDERED: NF: Potassium Citrate 10 meq TAB (NF) PO SCH (09:00)
[2021-05-31] MEDS ORDERED: prednisoLONE 1% OPHTH.SUSP 5 ML OPHTH.SUSP RIGHT EYE SCH (15:01)
[2021-05-31] MEDS ORDERED: cefTRIAXone 2 GM ADDV.VIAL ONE (15:38)
[2021-05-31] MEDS ORDERED: Iohexol 180 (CONTRAST) 20 ML SDV IV ONE (15:46)
[2021-05-31] MEDS ORDERED: fentaNYL 100 mcg/2 ml 50 MCG/ML VIAL ONE (15:54)
[2021-05-31] MEDS ORDERED: Midazolam 2 mg/2 ml VIAL 1 mg/ml 2 ml VIAL (2 mg) ONE (15:55)
[2021-05-31] MEDS ORDERED: Lidocaine 2% PF 5 ML VIAL ONE (16:07)
[2021-05-31] MEDS ORDERED: Propofol 10 MG/ML 20 ML BTL ONE (16:07)
[2021-05-31] MEDS ORDERED: Naloxone 0.4 mg VIAL 0.4 mg/ml 1 ml VIAL IV PRN (16:59)
[2021-05-31] MEDS ORDERED: fentaNYL 100 mcg/2 ml 50 MCG/ML VIAL IV PRN (16:59)
[2021-05-31] MEDS ORDERED: oxyCODONE/Acetamin 5/325 mg TAB PO PRN (16:59)
[2021-05-31 18:00] VITALS: BP 129/71
== END 2021-05-31 17:50 | disposition home or self-care (01) ==
LOC: ED 23:22 → EDHOLD 23:22
PROVIDERS: ADMIT Hospitalist; ATTEND Urology

== ENCOUNTER 2022-04-04 09:33 | Observation (INO) ==
[2022-04-04] MEDS ORDERED: NS 0.9% 1000 ml BAG 1,000 ML IV ONE (09:45)
[2022-04-04] MEDS ORDERED: cefTRIAXone 2 gm/50 mL D5W 2 GM/50 ML BAG IV ONE (12:07)
[2022-04-04 12:23] LABS: Hematocrit 47 % (42-52); Hemoglobin 16.2 g/dL (14.0-18.0); Mean Corpuscular HGB Conc 34 g/dL (31-36); Mean Corpuscular Hemoglobin 32 pg (27-31); Mean Corpuscular Volume 95 fL (80-94); Mean Platelet Volume 9.2 fL (7.4-10.4); Platelet Count 231 10^3/uL (150-450); Red Blood Count 5.01 10^6 /uL (4.18-5.48); Red Cell Distribution Width 13 % (10-15); White Blood Count 14.2 10^3/uL (3.5-10.8)
[2022-04-04 12:33] LABS: Activated Partial Thrombo Time 26.7 seconds (26.0-38.0); INR 1.07 (0.88-1.18)
[2022-04-04 13:05] LABS: Albumin 4.6 g/dL (3.2-5.2); C Reactive Protein 3.57 mg/L (<8.01); Calcium 9.5 mg/dL (8.6-10.3); Creatinine, Serum 1.46 mg/dL (0.67-1.17); Globulin 2.3 g/dL (2-4); Potassium 3.9 mmol/L (3.5-5.0); Total Bilirubin 0.8 mg/dL (0.2-1.0); Total Protein 6.9 g/dL (6.4-8.9); eGFR CKD-EPI 51.7 (>60)
[2022-04-04 13:10] LABS: ABS Basophils 0.1 10^3/ul (0-0.2); ABS Monocytes 1.6 10^3/ul (0-0.8); ABS Neutrophils 11.5 10^3/ul (1.5-7.7); Lymphocyte % 7.1 %; Nucleated Red Blood Cells % 0.1
[2022-04-04 13:44] LABS: High Sensitivity Troponin 1 Hr 4 pg/mL (<20)
[2022-04-04] MEDS ORDERED: Acetaminophen IV 1 GM/100ML 1,000 MG/100 ML BAG IV PRN (15:02)
[2022-04-04] MEDS ORDERED: Morphine 2 MG/ML SYRINGE IV PRN (15:02)
[2022-04-04] MEDS ORDERED: Enoxaparin 40 MG/0.4 ML SYR SUBCUT SCH (16:00)
[2022-04-04] MEDS: NS 0.9% 1000 ml BAG 1,000 ML IV SCH ×2 (16:53→18:33)
[2022-04-04 18:07] LABS: Urine Appearance Clear; Urine Bilirubin Negative (Negative); Urine Blood 2+ (Negative); Urine Color Yellow; Urine Glucose Negative (Negative); Urine Ketones Negative (Negative); Urine Nitrite Negative (Negative); Urine Protein Negative (Negative); Urine Urobilinogen Negative (Negative)
[2022-04-04 18:10] LABS: Urine Bacteria Absent (Absent); Urine Red Blood Cell 2+(6-10/hpf) (Absent); Urine Squamous Epithelial Cell Present (Absent); Urine White Blood Cell 1+(6-10/hpf) (Absent)
[2022-04-05] MEDS: Lidocaine 2% JELLY 6 ML Topical TOPICAL SCH ×2 (00:27→10:57)
[2022-04-05 06:14] LABS: ABS Eosinophils 0.1 10^3/ul (0-0.6); ABS Lymphocytes 1.8 10^3/ul (1.0-4.8); ABS Monocytes 1.5 10^3/ul (0-0.8); ABS Neutrophils 5.5 10^3/ul (1.5-7.7); Eosinophil % 1.3 %; Hematocrit 39 % (42-52); Hemoglobin 13.3 g/dL (14.0-18.0); Lymphocyte % 19.9 %; Mean Corpuscular HGB Conc 34 g/dL (31-36); Mean Corpuscular Hemoglobin 33 pg (27-31); Mean Corpuscular Volume 96 fL (80-94); Mean Platelet Volume 9.3 fL (7.4-10.4); Nucleated Red Blood Cells % 0.1; Platelet Count 172 10^3/uL (150-450); Red Blood Count 4.09 10^6 /uL (4.18-5.48); Red Cell Distribution Width 13 % (10-15)
[2022-04-05 06:43] LABS: Calcium 8.2 mg/dL (8.6-10.3); Creatinine, Serum 1.11 mg/dL (0.67-1.17); Magnesium 2.1 mg/dL (1.9-2.7); Potassium 3.7 mmol/L (3.5-5.0); eGFR CKD-EPI 71.9 (>60)
[2022-04-05] MEDS ORDERED: Iohexol 180 (CONTRAST) 10 ML SDV IV ONE (06:57)
[2022-04-05] MEDS ORDERED: fentaNYL 100 mcg/2 ml 50 MCG/ML VIAL ONE (07:48)
[2022-04-05] MEDS ORDERED: Lidocaine 2% PF 5 ML VIAL ONE (07:48)
[2022-04-05] MEDS ORDERED: Dexamethasone IV 4 MG/ML VIAL 1 ml VIAL ONE (07:48)
[2022-04-05] MEDS ORDERED: Ondansetron 4 mg VIAL 2 MG/ML 2 ml VIAL ONE (07:48)
[2022-04-05] MEDS ORDERED: Propofol 10 MG/ML 20 ML BTL ONE (07:48)
[2022-04-05] MEDS ORDERED: Midazolam 5 mg/5 ml VIAL 1 mg/ml 5 ml VIAL (5 mg) ONE (07:49)
[2022-04-05] MEDS ORDERED: Phenylephrine 40 mcg/mL 10mL (400mcg) SYRINGE ONE (08:38)
[2022-04-05] MEDS ORDERED: Furosemide 20 mg/2 ml IV VIAL ONE (08:56)
[2022-04-05] MEDS ORDERED: Timolol 0.5% OPTH.SOL BTL RIGHT EYE SCH (09:00)
[2022-04-05] MEDS ORDERED: Naloxone 0.4 mg VIAL 0.4 mg/ml 1 ml VIAL IV PRN (09:02)
[2022-04-05] MEDS ORDERED: fentaNYL 100 mcg/2 ml 50 MCG/ML VIAL IV PRN (09:02)
[2022-04-05] MEDS ORDERED: Ondansetron 4 mg VIAL 2 MG/ML 2 ml VIAL IV PRN (09:02)
[2022-04-05] MEDS ORDERED: Acetaminophen IV 1 GM/100ML 1,000 MG/100 ML BAG IV ONE (09:04)
[2022-04-05] MEDS ORDERED: cefTRIAXone 1 gm/50 mL D5W 1 GM/50 ML BAG IV ONE (09:31)
[2022-04-05] MEDS ORDERED: cefTRIAXone 1 gm/50 mL D5W 1 GM/50 ML BAG IV SCH (12:00)
[2022-04-05 13:30] VITALS: BP 156/65
== END 2022-04-05 14:40 | disposition home or self-care (01) ==
LOC: ED 09:33 → EDHOLD 09:33 → SSU 17:30
PROVIDERS: ADMIT Hospitalist; ATTEND Hospitalist